=== PATIENT | female | born 1980 | race African-American/Black ===

== ENCOUNTER 2017-10-05 08:59 | Outpatient (CLI) | payer OTHER ==
--- NOTE | 2017-10-06 14:20 | RAD ---
MODIFIED BARIUM SWALLOW: History Dysphagia, oropharyngeal phase. Feeding difficulty. COMPARISON: None. FINDINGS\IMPRESSION: A videotape of a modified barium swallow performed by speech pathologist submitted for interpretation . The patient was administered puree, nectar thick, thin liquid, regular texture consistencies, as w ell as barium tablet. No evidence of penetration or aspiration. Please refer to speech pathology re port for feeding recommendations. EXPOSURE: 3.8 seconds. 9.78 mGy. POS: [place]
== END 2017-10-05 09:00 | disposition home or self-care (01) ==
PROVIDERS: ATTEND Internal Medicine Gastroenterology
DX: R13.12 Dysphagia, oropharyngeal phase (principal); R63.3 Feeding difficulties
CPT/HCPCS: 74230

== ENCOUNTER 2018-01-31 12:20 | Emergency (ER) | payer OTHER, SELFPAY ==
[2018-01-31 13:20] LABS: #Basophils 0.1 thou/uL (0.0-0.2); #Eosinphils 0.2 thou/uL (0.0-0.7); #Lymphocytes 3.4 thou/uL (1.20-3.40); #Monocytes 1.1 thou/uL (0.11-0.59); #Neutrophils 10.3 thou/uL (1.40-6.50); %Basophils 0.5 % (0.0-1.0); %Eosinophils 1.4 % (0.0-10.0); %Lymphocytes 22.4 % (21.0-51.0); %Monocytes 7.3 % (0.0-10.0); %Neutrophils 68.6 % (42.0-75.0); Hemoglobin 13.3 g/dL (12.0-16.0); Mean Corpuscular HGB CONC 32.3 g/dL (32.0-36.0); Mean Platelet Volume 7.2 fL (7.4-10.4); Platelet Count 303 thou/uL (130-400); Red Blood Cell (RBC) Count 4.41 mill/uL (4.20-5.40); White Blood Cell (WBC) Count 15.1 thou/uL (4.8-10.8)
[2018-01-31 13:43] LABS: ALT (SGPT) 9 U/L (8-55); AST (SGOT) 19 U/L (5-34); Albumin 4.1 g/dL (3.5-5.0); Alkaline Phosphatase 167 U/L (40-150); Anion Gap 10 mmol/L (10-20); BUN (Urea Nitrogen) 15 mg/dL (7.0-18.7); Bilirubin, Total 0.3 mg/dL (0.2-1.2); Calc. Creatinine Clearance 0 mL/min (70-130); Calcium 9.4 mg/dL (7.8-10.44); Carbon Dioxide 24 mmol/L (22-29); Chloride 109 mmol/L (98-107); Estimated GFR-MDRD 65; Glucose 81 mg/dL (70-105); Lipase 46 U/L (8-78); Protein, Total 8.1 g/dL (6.0-8.3); Sodium 139 mmol/L (136-145)
[2018-01-31 13:46] LABS: Bilirubin Negative (Negative); Blood, Urine Negative (Negative); Clarity CLEAR (Clear); Glucose, Urine (Dipstick) Negative (Negative); Leukocyte Negative (Negative); Nitrite Negative (Negative); Protein, Urine (Dipstick) Negative (Neg-Trace); Specific Gravity, Urine 1.029 (1.002-1.036)
[2018-01-31 13:52] LABS: Pregnancy Test - Urine (BHCG) Negative (Negative); Pregu Control Background? CLEAR/WHITE (CLR/WHITE); Pregu Control Bar Appear? YES (CONTROL BAR); Specific Gravity 1.029 (1.002-1.036)
[2018-01-31] MEDS ORDERED: ISOVUE-370 76%-LOCM 1 ML ONE (14:13)
--- NOTE | 2018-01-31 15:02 | CT ---
CT ABDOMEN AND PELVIS PERFORMED WITH CONTRAST ENHANCEMENT: History: Abdominal pain. FINDINGS: The lung bases are clear. The liver and spleen are within normal limits of size. No focal lesions. Pancreas and gallbladder reg ions appear unremarkable. Right and left adrenal glands and right and left kidneys are normal in size. There is no significant periaortic or mesenteric adenopathy. Mild amount of stool throughout the colon. CT OF PELVIS PERFORMED WITH CONTRAST ENHANCEMENT: The appendix is normal. There is no evidence of adenopathy or mass. Follicles are seen involving the adnexa. Fairly minimal osteophytic changes of the spine and some arthritic changes of the right hip noted. IMPRESSION: No acute abnormalities are of the abdomen or pelvis. POS: C
== END 2018-01-31 15:02 | disposition home or self-care (01) ==
LOC: ERS 12:20
DX: R10.9 Unspecified abdominal pain (principal)
CPT/HCPCS: 36415; 74177; 80053; 81003; 81025; 83690; 85025

== ENCOUNTER 2020-02-20 06:48 | Outpatient (CLI) | payer OTHER ==
--- NOTE | 2020-02-20 08:44 | ULT ---
OBSTETRICAL ULTRASOUND: DATE: 02/20/2020. COMPARISON: None. HISTORY: Evaluate anatomy, 39-year-old female. TECHNIQUE: Multiplanar, nugent scale, sonographic imaging of the gravid uterus obtained. FINDINGS: Cervical length is approximately 5.8 cm. Single intrauterine gestation present with breech presentat ion. The placenta is fundal in location. No previa or abruption seen. heart rate is 153 b.p. m. Maternal adnexa not assessed on this exam. Three-vessel cord noted. stomach, 4-chamber heart view, intracranial contents, nose and lips, spine, urinary bladder, umbilical cord insertion site, and region of kidneys appears grossly un remarkable. Amniotic fluid index is 20.5 cm. BIOMETRY: BPD 5.7 cm, 23 weeks 4 days HC 21.7 cm, 23 weeks 6 days AC 19.6 cm, 24 weeks 2 days FL 4.3 cm, 24 weeks 1 day Average age based on ultrasound is 24 weeks 0 days. Estimated date of delivery is 06/11/2020. Estimated weight 662 gm +/- 97 gm. IMPRESSION: Intrauterine gestation as detailed above. POS: BRIAN
== END 2020-02-20 06:49 | disposition home or self-care (01) ==
LOC: BICULT 06:48
PROVIDERS: ATTEND Nurse Practitioner
DX: O09.92 Supervision of high risk pregnancy, unspecified, second trimester (principal); Z3A.24 24 weeks gestation of pregnancy
CPT/HCPCS: 76805

== ENCOUNTER 2020-06-15 09:54 | Outpatient (CLI) | payer OTHER ==
[2020-06-15 20:48] LABS: SARS-CoV-2 PCR by NAA Not Detected (NotDetected)
== END 2020-06-15 09:55 | disposition home or self-care (01) ==
LOC: LABBT 09:54
PROVIDERS: ATTEND Family Medicine
DX: Z01.812 Encounter for preprocedural laboratory examination (principal); Z20.822 Contact with and (suspected) exposure to COVID-19
CPT/HCPCS: 87635; U0003; U0005

== ENCOUNTER 2023-09-22 11:51 | Emergency (ER) | payer OTHER ==
[2023-09-22 13:24] LABS: Bilirubin Negative (Negative); Blood, Urine Trace (Negative); Glucose, Urine (Dipstick) Negative (Negative); Ketone, Urine Negative (Negative); Leukocyte Small (Negative); Nitrite Positive (Negative); Protein, Urine (Dipstick) Negative (Neg-Trace); Specific Gravity, Urine 1.025 (1.005-1.030); Urobilinogen 0.2 mg/dL (Less than 2)
[2023-09-22 13:25] LABS: Clarity Hazy (Clear)
[2023-09-22 13:31] LABS: Bacteria/HPF 3+ HPF (None Seen); CAUTI Indications for Culture Pelvic or flank pain
[2023-09-22 13:32] LABS: Urine Culture Reflex Yes Yes
== END 2023-09-22 14:42 | disposition home or self-care (01) ==
LOC: ERS 11:51
DX: N39.0 Urinary tract infection, site not specified (principal); I10 Essential (primary) hypertension
CPT/HCPCS: 81001; 87077; 87086; 87186; 99283